=== PATIENT | male | born 1955 | race Two or more races ===

== ENCOUNTER 2018-03-20 18:58 | Inpatient (IN) | payer BC, OTHER ==
[~2018-03-20] VITALS: Ht 182.9 cm; Wt 100.4 kg
[2018-03-20 19:38] LABS: Basophils # (auto) 0 uL; Basophils % (auto) 0.7 % (0.0-2.0); Eosinophils # (auto) 0.2 uL; Eosinophils % (auto) 2.3 % (0.0-7.0); Hemoglobin 14.4 g/dL (13.5-17.5); Lymphocytes # (auto) 1.4 uL; Mean Corpuscular Hemoglobin 32.6 pg (28.0-32.0); Mean Corpuscular Volume 90.5 fL (80.0-100.0); Monocytes # (auto) 0.8 uL; Monocytes % (auto) 11.3 % (0.0-12.0); Neutrophils # (auto) 4.9 uL; Neutrophils % (auto) 66.7 % (37.0-80.0); Nucleated Red Blood Cells % 0.9 %; Platelet Count (auto) 193 10^3/uL (140-450); Red Blood Cells 4.42 10^6/uL (4.5-5.90); Red Cell Distribution Width 15.1 % (11.8-14.3); White Blood Cell 7.3 10^3/uL (4.4-10.8)
[2018-03-20 19:53] LABS: Albumin 3.5 g/dL (3.4-5.0); BUN/Creatinine Ratio 14.2; Calcium 7.4 mg/dL (8.5-10.1); Magnesium 2.3 mg/dL (1.6-2.6); Potassium 3.6 mmol/L (3.5-5.1)
[2018-03-20 19:58] LABS: Bilirubin, Total 1.1 mg/dL (0.2-1.0); Total Protein 6.7 g/dL (6.4-8.2)
[2018-03-20] MEDS ORDERED: ENOXAPARIN SOD 30 MG/0.3 ML SYRINGE IV ONE (20:00)
[2018-03-20] MEDS ORDERED: MORPHINE SULF INJ 2 MG/ML SYRINGE 1ML IV PRN (20:00)
[2018-03-20] MEDS ORDERED: NITROGLYCERIN 0.4 MG SL TAB SL PRN (20:00)
[2018-03-20] MEDS ORDERED: ASPirin 81 mg TAB PO ONE (20:30)
[2018-03-20 21:10] LABS: INR 1.03 (0.9-1.15)
[2018-03-20] MEDS ORDERED: POTASSIUM CHL 20 Meq TABLET PO ONE (21:30)
[2018-03-20] MEDS: ENOXAPARIN SOD 80 MG/0.8ML SYRINGE SC SCH (21:55)
[2018-03-20] MEDS: MAGNESIUM OXIDE 400 MG TAB PO SCH (21:55)
[2018-03-20] MEDS: AMIODARONE HCL 200 MG TAB PO SCH (21:55)
[2018-03-20 22:38] VITALS: BP 129/84
[2018-03-20 23:00] VITALS: BP 129/84
[2018-03-20] MEDS: D5W/SOD CHL 0.45%/KCL 20MEQ 1,000 ML IV SCH (23:07)
[2018-03-21] VITALS (7 sets, daily range): BP systolic 108–134; BP diastolic 70–86
[2018-03-21] MEDS ORDERED: MAGN400T5 PO (04:50)
[2018-03-21] MEDS ORDERED: AMIO200T33 PO (04:50)
[2018-03-21] MEDS ORDERED: DIGO0.1262 PO (04:50)
[2018-03-21] MEDS ORDERED: APIX5TAB PO (04:50)
[2018-03-21] MEDS ORDERED: CHOL500021 PO (04:50)
[2018-03-21] MEDS ORDERED: LISI-275 PO (04:50)
[2018-03-21] MEDS: AMIODARONE HCL 200 MG TAB PO SCH ×2 (05:45→14:19)
[2018-03-21] MEDS: D5W/SOD CHL 0.45%/KCL 20MEQ 1,000 ML IV SCH (07:45)
[2018-03-21] MEDS ORDERED: LIDOCAINE 2% (LOCAL ANESTH.) PF 5ml SDV ONE (08:30)
[2018-03-21] MEDS ORDERED: IOHEXOL 350 MG/ML 100ML IJ ONE (08:30)
[2018-03-21] MEDS ORDERED: ANGIOMAX 250 MG VIAL IV ONE (09:02)
[2018-03-21] MEDS ORDERED: fentaNYL CITRATE 100 MCG/2 ML VL ONE (09:02)
[2018-03-21] MEDS ORDERED: SODIUM CHL 0.9% 0 ML ONE (09:03)
[2018-03-21] MEDS ORDERED: MIDAZOLAM HCL 1MG/1ML-2 ML VIAL ONE (09:03)
[2018-03-21] MEDS: ENOXAPARIN SOD 80 MG/0.8ML SYRINGE SC SCH ×2 (09:52→09:53)
[2018-03-21] MEDS ORDERED: ASPirin 81 mg TAB PO SCH (10:00)
[2018-03-21] MEDS: MAGNESIUM OXIDE 400 MG TAB PO SCH (10:00)
== END 2018-03-21 19:20 | disposition short-term general hospital (02) | DRG 287 ==
LOC: EDBD 18:58 → ER 19:03 → TELE 19:04 → TELE-EAST 22:35
PROVIDERS: ADMIT Internal Medicine Cardiovascular Disease; ATTEND Family Medicine
PROC: 5A2204Z Restoration of Cardiac Rhythm, Single (ICD-10-PCS; 2018-03-20)
PROC: 4A023N7 Measurement of Cardiac Sampling and Pressure, Left Heart, Percutaneous Approach (ICD-10-PCS; principal; 2018-03-21)
PROC: B2111ZZ Fluoroscopy of Multiple Coronary Arteries using Low Osmolar Contrast (ICD-10-PCS; 2018-03-21)
PROC: B2151ZZ Fluoroscopy of Left Heart using Low Osmolar Contrast (ICD-10-PCS; 2018-03-21)
DX: I47.2 Ventricular tachycardia (principal); G47.33 Obstructive sleep apnea (adult) (pediatric); I10 Essential (primary) hypertension; I48.2 Chronic atrial fibrillation; I49.01 Ventricular fibrillation; Z82.49 Family history of ischemic heart disease and other diseases of the circulatory system; Z83.3 Family history of diabetes mellitus; Z87.891 Personal history of nicotine dependence
CPT/HCPCS: 36415; 71045; 80053; 80162; 83735; 84484; 85025; 85610; 93005; 93306; 96374; 99152; J2250